=== PATIENT | female | born 1990 | race Two or more races ===

== ENCOUNTER 2021-03-11 13:15 | Inpatient (IN) | payer OTHER ==
[~2021-03-11] VITALS: Ht 170.2 cm; Wt 57.2 kg
[2021-03-25] MEDS ORDERED: OMEGA-31000 MG PO (15:20)
[2021-03-25] MEDS ORDERED: PRENATAL CAPLE1 EAC1 PO (15:20)
[2021-03-25] MEDS ORDERED: BIOTIN10 MG PO (15:20)
== END 2021-03-28 11:28 | DRG 807 ==
LOC: LDR 03-25 14:20 → SURG-SUITE 03-26 13:41 → LDR 03-30 13:15
PROVIDERS: ADMIT Obstetrics & Gynecology Maternal & Fetal Medicine; ATTEND Obstetrics & Gynecology Maternal & Fetal Medicine
PROC: 4A1HXFZ Monitoring of Products of Conception, Cardiac Rhythm, External Approach (ICD-10-PCS; 2021-03-25)
PROC: 10E0XZZ Delivery of Products of Conception, External Approach (ICD-10-PCS; principal; 2021-03-26)
PROC: 0HQ9XZZ Repair Perineum Skin, External Approach (ICD-10-PCS; 2021-03-26)
PROC: 10907ZC Drainage of Amniotic Fluid, Therapeutic from Products of Conception, Via Natural or Artificial Opening (ICD-10-PCS; 2021-03-26)
DX: O70.0 First degree perineal laceration during delivery (principal); Z37.0 Single live birth; Z3A.39 39 weeks gestation of pregnancy; Z20.822 Contact with and (suspected) exposure to COVID-19

== ENCOUNTER 2021-03-23 08:00 | Outpatient (CLI) | payer OTHER | END 2021-03-23 08:30 | disposition home or self-care (01) | LOC: NST 08:00 | PROVIDERS: ATTEND Obstetrics & Gynecology | DX: Z34.03 Encounter for supervision of normal first pregnancy, third trimester (principal) ==

== ENCOUNTER → 2021-12-14 | Emergency (ER) | payer OTHER ==
[~2021-12-14] VITALS: Ht 170.2 cm; Wt 49.0 kg
[~2021-12-14] MED LIST: BIOTIN10 MG PO; OMEGA-31000 MG PO; PRENATAL CAPLE1 EAC1 PO
== END | disposition left against medical advice (07) ==
LOC: ER 13:44
DX: O20.9 Hemorrhage in early pregnancy, unspecified (principal); Z3A.11 11 weeks gestation of pregnancy

== ENCOUNTER 2022-03-31 00:50 | Outpatient (CLI) | payer OTHER ==
[2022-03-31] MEDS ORDERED: PRENATAL + DHA1 EAC1 PO (00:56)
== END 2022-03-31 09:52 | disposition home or self-care (01) ==
LOC: OBS/DEL 00:50
PROVIDERS: ATTEND Obstetrics & Gynecology
DX: O99.612 Diseases of the digestive system complicating pregnancy, second trimester (principal); Z3A.26 26 weeks gestation of pregnancy; R19.7 Diarrhea, unspecified; R11.0 Nausea

== ENCOUNTER 2022-04-28 22:18 | Inpatient (IN) | payer OTHER ==
[~2022-04-28] VITALS: Ht 170.2 cm; Wt 50.3 kg
[~2022-04-28 22:18] MED LIST changes: +PRENATAL + DHA1 EAC1 PO
== END 2022-04-30 12:14 | disposition home or self-care (01) | DRG 833 ==
LOC: LDR 22:18 → OB/GYN 22:18
PROVIDERS: ADMIT Obstetrics & Gynecology; ATTEND Obstetrics & Gynecology
PROC: 4A1HXCZ Monitoring of Products of Conception, Cardiac Rate, External Approach (ICD-10-PCS; principal; 2022-04-28)
DX: O60.03 Preterm labor without delivery, third trimester (principal); O26.853 Spotting complicating pregnancy, third trimester; Z3A.30 30 weeks gestation of pregnancy; Z20.822 Contact with and (suspected) exposure to COVID-19

== ENCOUNTER 2022-05-03 21:21 | Inpatient (IN) | payer OTHER ==
[~2022-05-03] VITALS: Ht 170.2 cm; Wt 50.3 kg
[2022-05-03] MEDS ORDERED: NIFEDIPINE20 MG PO (23:52)
== END 2022-05-05 09:47 | disposition home or self-care (01) | DRG 833 ==
LOC: LDR 21:21
PROVIDERS: ADMIT Obstetrics & Gynecology; ATTEND Obstetrics & Gynecology
PROC: 4A1HXCZ Monitoring of Products of Conception, Cardiac Rate, External Approach (ICD-10-PCS; principal; 2022-05-03)
DX: O47.03 False labor before 37 completed weeks of gestation, third trimester (principal); Z3A.30 30 weeks gestation of pregnancy; Z20.822 Contact with and (suspected) exposure to COVID-19

== ENCOUNTER 2022-05-17 01:40 | Inpatient (IN) | payer OTHER ==
[~2022-05-17] VITALS: Ht 170.2 cm; Wt 1.8 kg
[~2022-05-17 01:40] MED LIST changes: +NIFEDIPINE20 MG PO
[2022-05-17] MEDS ORDERED: NIFEDIPINE20 MG PO (02:40)
== END 2022-05-19 14:35 | disposition home or self-care (01) | DRG 807 ==
LOC: LDR 01:40 → OB/GYN 05-18 01:07
PROVIDERS: ADMIT Obstetrics & Gynecology; ATTEND Obstetrics & Gynecology
PROC: 10E0XZZ Delivery of Products of Conception, External Approach (ICD-10-PCS; principal; 2022-05-17)
PROC: 4A1HXCZ Monitoring of Products of Conception, Cardiac Rate, External Approach (ICD-10-PCS; 2022-05-17)
DX: O60.14X0 Preterm labor third trimester with preterm delivery third trimester, not applicable or unspecified (principal); Z37.0 Single live birth; Z3A.32 32 weeks gestation of pregnancy; Z20.822 Contact with and (suspected) exposure to COVID-19

== ENCOUNTER 2022-11-18 08:48 | Outpatient (CLI) | payer OTHER | END 2022-11-18 08:59 | disposition home or self-care (01) | LOC: SONOGRAMA 08:48 | PROVIDERS: ATTEND Obstetrics & Gynecology | DX: N63.21 Unspecified lump in the left breast, upper outer quadrant (principal); N63.12 Unspecified lump in the right breast, upper inner quadrant ==

== ENCOUNTER 2022-11-27 13:47 | Emergency (ER) | payer OTHER ==
[~2022-11-27] VITALS: Ht 170.2 cm; Wt 49.9 kg
== END 2022-11-27 18:24 | disposition home or self-care (01) ==
LOC: ER 13:47
DX: T24.111A Burn of first degree of right thigh, initial encounter (principal); X11.8XXA Contact with other hot tap-water, initial encounter; Y93.89 Activity, other specified; Y92.010 Kitchen of single-family (private) house as the place of occurrence of the external cause; Y99.9 Unspecified external cause status

== ENCOUNTER 2023-11-30 09:25 | Outpatient (CLI) | payer OTHER | END 2023-11-30 09:33 | disposition home or self-care (01) | LOC: SONOGRAMA 09:25 | PROVIDERS: ATTEND Obstetrics & Gynecology Maternal & Fetal Medicine | DX: N63.20 Unspecified lump in the left breast, unspecified quadrant (principal) ==

== ENCOUNTER 2024-08-21 18:56 | Outpatient (CLI) | payer OTHER | END 2024-08-21 19:41 | disposition home or self-care (01) | LOC: NST 18:56 | PROVIDERS: ATTEND Obstetrics & Gynecology | DX: Z34.83 Encounter for supervision of other normal pregnancy, third trimester (principal) ==

== ENCOUNTER → 2024-08-23 | Outpatient (CLI) | payer OTHER | END | disposition home or self-care (01) | LOC: NST 10:52 | PROVIDERS: ATTEND Obstetrics & Gynecology | DX: Z34.83 Encounter for supervision of other normal pregnancy, third trimester (principal) ==

== ENCOUNTER 2024-08-29 09:59 | Outpatient (CLI) | payer OTHER | END 2024-08-29 11:46 | disposition home or self-care (01) | LOC: NST 09:59 | PROVIDERS: ATTEND Obstetrics & Gynecology Maternal & Fetal Medicine | DX: Z34.83 Encounter for supervision of other normal pregnancy, third trimester (principal) ==

== ENCOUNTER 2024-08-29 22:57 | Outpatient (CLI) | payer OTHER ==
[2024-08-29 21:16] VITALS: BP 117/64
[2024-08-30 00:07] VITALS: BP 104/60
[2024-08-30 03:31] VITALS: BP 100/55
== END 2024-08-30 07:53 | disposition home or self-care (01) ==
LOC: OBS/DEL 22:57
PROVIDERS: ATTEND Obstetrics & Gynecology
DX: O26.893 Other specified pregnancy related conditions, third trimester (principal); Z3A.38 38 weeks gestation of pregnancy

== ENCOUNTER → 2024-09-02 | Outpatient (CLI) | payer OTHER ==
[~2024-09-02] VITALS: Ht 170.2 cm; Wt 56.7 kg
[2024-09-02 20:56] VITALS: BP 107/64
== END | disposition left against medical advice (07) ==
LOC: OBS/DEL 23:30
PROVIDERS: ATTEND Obstetrics & Gynecology
DX: O26.893 Other specified pregnancy related conditions, third trimester (principal); Z3A.39 39 weeks gestation of pregnancy

== ENCOUNTER 2024-09-06 12:22 | Inpatient (IN) | payer OTHER ==
[~2024-09-06] VITALS: Ht 170.2 cm; Wt 57.2 kg
[2024-09-06] VITALS (7 sets, daily range): BP systolic 102–116; BP diastolic 56–80
[2024-09-06] MEDS ORDERED: RINGERS SOLUTION,LACTATED 1,000 ML IV SCH (12:45)
[2024-09-06] MEDS ORDERED: AMPICILLIN SODIUM 2,000 MG VIAL IV ONE (12:45)
[2024-09-06 13:02] LABS: HEMATOCRIT 41.1 % (36.0-45.00); HEMOGLOBIN 14.5 g/dL (12.0-15.00); MEAN CELL VOLUME 92.2 fL (80.00-100.00); MEAN CORPUSCULAR HEMOGLOBIN 32.5 pg (27.00-32.0); MEAN CORPUSCULAR HGB CONC 35.2 g/dl (32.0-36.0); PLATELET COUNT 208 K/uL (150-450); RED BLOOD COUNT 4.45 M/uL (4.00-6.00)
[2024-09-06 13:19] LABS: INR < 0.93; PARTIAL THROMBOPLASTIN TIME 28.5 SECONDS (22.0-34.0); PROTHROMBIN TIME 9.8 SECONDS (9.0-11.5)
[2024-09-06 13:35] LABS: ALBUMIN 2.8 gm/dL (3.4-5.0); BILIRUBIN TOTAL 1.13 mg/dL (0.3-1.2); CALCIUM 8.9 mg/dL (8.5-10.1); CREATININE SERUM 0.46 mg/dL (0.55-1.02); GFR 157.42; GLOBULINA 3.9 G/DL (2.4-3.5); POTASSIUM 3.66 mEq/L (3.5-5.1); TOTAL PROTEIN 6.7 gm/dL (6.4-8.2)
[2024-09-06] MEDS ORDERED: CHLORHEXIDINE GLUCONATE 120 ML BOTTLE TOP ONE (14:00)
[2024-09-06] MEDS ORDERED: ERYTHROMYCIN BASE OPHT 1GM EACH TUBE OP ONE (14:00)
[2024-09-06] MEDS ORDERED: OXYTOCIN 1,000 ML IV ONE ×2 (14:00→14:15)
[2024-09-06] MEDS ORDERED: IBUprofen 400 MG TABLET PO PRN (14:15)
[2024-09-06] MEDS ORDERED: CHLORHEXIDINE GLUCONATE 120 ML BOTTLE TP ONE (14:15)
[2024-09-06] MEDS ORDERED: AMPICILLIN SODIUM 1,000 MG VIAL IV SCH (16:00)
[2024-09-06] MEDS ORDERED: DOCUSATE SODIUM 100MG CAP PO SCH (17:00)
[2024-09-07 02:59] VITALS: BP 100/60
[2024-09-07 06:12] LABS: HEMATOCRIT 34.4 % (36.0-45.00); HEMOGLOBIN 12.1 g/dL (12.0-15.00); MEAN CELL VOLUME 91.9 fL (80.00-100.00); MEAN CORPUSCULAR HEMOGLOBIN 32.4 pg (27.00-32.0); MEAN CORPUSCULAR HGB CONC 35.2 g/dl (32.0-36.0); PLATELET COUNT 158 K/uL (150-450); RED BLOOD COUNT 3.75 M/uL (4.00-6.00); RED CELL DISTRIBUTION WIDTH 13.5 % (11.5-14.5)
[2024-09-07] MEDS ORDERED: PNV,CALCIUM 72/IRON/FOLIC ACID 1 TAB TABLET PO SCH (09:00)
[2024-09-07 09:23] VITALS: BP 105/72
[2024-09-07 16:00] VITALS: BP 104/69
[2024-09-08 01:37] VITALS: BP 100/60
[2024-09-08 09:06] VITALS: BP 113/69
== END 2024-09-08 13:12 | disposition home or self-care (01) | DRG 807 ==
LOC: LDR 12:22 → OB/GYN 12:22
PROVIDERS: Obstetrics & Gynecology; ADMIT Obstetrics & Gynecology Gynecology; ATTEND Obstetrics & Gynecology Gynecology
PROC: 10E0XZZ Delivery of Products of Conception, External Approach (ICD-10-PCS; principal; 2024-09-06)
PROC: 4A1HXCZ Monitoring of Products of Conception, Cardiac Rate, External Approach (ICD-10-PCS; 2024-09-06)
DX: O80 Encounter for full-term uncomplicated delivery (principal); Z37.0 Single live birth; Z3A.39 39 weeks gestation of pregnancy; Z20.822 Contact with and (suspected) exposure to COVID-19